=== PATIENT | male | born 1960 | race African-American/Black ===

== ENCOUNTER 2023-01-10 09:36 | Day surgery (SDC) | payer OTHER ==
[~2023-01-10] VITALS: Ht 172.7 cm; Wt 125.6 kg
[2023-01-10] MEDS ORDERED: fentaNYL citrate 0.05 MG/ML VIAL ONE (10:53)
[2023-01-10] MEDS ORDERED: diphenhydrAMINE 50 MG/ML VIAL ONE (10:53)
[2023-01-10] MEDS ORDERED: MIDAZOLAM 5 MG/5 ML VIAL ONE (10:53)
[2023-01-10] MEDS ORDERED: LIDOCAINE 2% 100 MG/5 ML UJET TP ONE (10:53)
[2023-01-10] MEDS ORDERED: fentaNYL citrate 0.05 MG/ML VIAL IVP ONE (12:20)
[2023-01-10] MEDS ORDERED: MIDAZOLAM 5 MG/5 ML VIAL IV ONE (12:20)
== END 2023-01-10 12:35 | disposition home or self-care (01) ==
LOC: MDS 09:36 → MMU 09:57 → MDS 12:35
PROVIDERS: ATTEND Internal Medicine Gastroenterology
DX: Z12.11 Encounter for screening for malignant neoplasm of colon (principal); D12.2 Benign neoplasm of ascending colon; D12.4 Benign neoplasm of descending colon; R14.1 Gas pain; K21.9 Gastro-esophageal reflux disease without esophagitis; Z79.899 Other long term (current) drug therapy; Z20.822 Contact with and (suspected) exposure to COVID-19
CPT/HCPCS: 43239; 45380; 45385; 87426; J2250; J3010; J1200